=== PATIENT | male | born 1985 | race Caucasian/White ===

== ENCOUNTER 2018-08-15 11:46 | Emergency (ER) | payer OTHER ==
[2018-08-15] MEDS ORDERED: KETOROLAC TROMETHAMINE 30MG/ML ONE (11:52)
[2018-08-15 12:11] LABS: EOSINOPHILS % (AUTO) 1.7 % (0.0-8.0); HEMATOCRIT 44.8 % (42-54); LYMPHOCYTES % (AUTO) 32.9 % (21.0-51.0); MEAN CORPUSCULAR HGB CONC 34.1 g/dL (32.0-36.0); MEAN CORPUSCULAR VOLUME 96.8 fL (79-99); MONOCYTES % (AUTO) 6.6 % (3.0-13.0); NEUTROPHILS % (AUTO) 57.8 % (40.0-77.0); PLATELET COUNT (AUTO) 237 K/uL (130-400); RED BLOOD CELL COUNT(AUTO) 4.63 MIL/uL (4.50-6.20); RED CELL DISTRIBUTION WIDTH 13.6 % (11.0-15.5); WHITE BLOOD COUNT (AUTO) 7.2 K/uL (4.8-10.8)
[2018-08-15 12:15] LABS: APPEARANCE,URINE CLEAR (CLEAR); BILIRUBIN,URINE NEGATIVE (NEGATIVE); COLOR,URINE ORANGE (YELLOW); GLUCOSE, URINE (UA) 250 mg/dL (NEGATIVE); KETONES,URINE 15 mg/dL (NEGATIVE); LEUKOCYTE ESTERASE ,URINE SMALL (NEGATIVE); NITRATE,URINE POSITIVE (NEGATIVE); OCCULT BLOOD,URINE MODERATE (NEGATIVE); PH,URINE 6.5 (5.0-8.0); PROTEIN,URINE 100 mg/dL (NEGATIVE); UROBILINOGEN,URINE >=8.0 mg/dL (0.2-1.0)
[2018-08-15 12:19] LABS: CREATININE 1.2 mg/dL (0.5-1.5); POTASSIUM 3.7 mmol/L (3.5-5.1)
[2018-08-15 12:21] LABS: MUCUS,URINE Few LPF (None Seen); SQUAMOUS EPITHELIAL CELL,UR Rare /HPF (0-2)
[2018-08-15 12:23] LABS: BACTERIA,URINE Rare /HPF (None Seen)
[2018-08-15] MEDS ORDERED: MORPHINE SULFATE 2 MG/ML 1ML SYG ONE (12:43)
[2018-08-15] MEDS ORDERED: ONDANSETRON HCL 4 MG/2 ML VIAL ONE (12:43)
== END 2018-08-15 14:37 | disposition home or self-care (01) ==
LOC: EDBD 11:46 → EDH 11:46
DX: R30.0 Dysuria (principal); Z87.442 Personal history of urinary calculi
CPT/HCPCS: 36415; 74176; 80048; 81001; 85025; 96374; 96375; 99285; J1885; J2405

== ENCOUNTER 2020-09-07 22:39 | Emergency (ER) | payer OTHER ==
[~2020-09-07] VITALS: Ht 175.3 cm; Wt 98.0 kg
[2020-09-07 23:11] VITALS: BP 118/78
[2020-09-07] MEDS ORDERED: SODIUM CHLORIDE 0.9% 1000ML 1,000 ML IV ONE (23:34)
[2020-09-07 23:35] LABS: HEMATOCRIT 43.6 % (42-54); MEAN CORPUSCULAR HEMOGLOBIN 31.2 pg (27.0-33.0); MEAN CORPUSCULAR HGB CONC 33.9 g/dL (32.0-36.0); MEAN CORPUSCULAR VOLUME 91.8 fL (79-99); RED BLOOD CELL COUNT(AUTO) 4.75 MIL/uL (4.50-6.20); WHITE BLOOD COUNT (AUTO) 10.5 K/uL (4.8-10.8)
[2020-09-07] MEDS: SODIUM CHLORIDE 0.9% 1000ML 1,000 ML IV SCH (23:41)
[2020-09-07 23:45] LABS: APPEARANCE,URINE Cloudy (CLEAR); BILIRUBIN,URINE Moderate (NEGATIVE); GLUCOSE, URINE (UA) Negative (NEGATIVE); LEUKOCYTE ESTERASE ,URINE Moderate (NEGATIVE); NITRATE,URINE Positive (NEGATIVE); OCCULT BLOOD,URINE Moderate (NEGATIVE); PROTEIN,URINE POS 1+ mg/dL (NEGATIVE)
[2020-09-07 23:49] LABS: BILIRUBIN,TOTAL 0.9 mg/dL (0.2-1.0); CREATININE 1.3 mg/dL (0.5-1.5); POTASSIUM 3.6 mmol/L (3.5-5.1); TOTAL PROTEIN, SERUM 7.9 g/dL (6.0-8.3)
[2020-09-07 23:52] LABS: KETONES,URINE TRACE mg/dL (NEGATIVE)
[2020-09-07 23:53] LABS: COLOR,URINE ORANGE (YELLOW)
[2020-09-07 23:56] LABS: BACTERIA,URINE Few /HPF (None Seen)
[2020-09-08 00:50] VITALS: BP 125/66
[2020-09-08 01:54] VITALS: BP 119/71
[2020-09-08] MEDS ORDERED: KETOROLAC 30MG VIAL (30MG/ML) IV SCH (02:00)
[2020-09-08] MEDS ORDERED: ONDANSETRON HCL 4 MG/2 ML VIAL IVP SCH (02:00)
[2020-09-08 02:36] VITALS: BP 111/74
[2020-09-08] MEDS: SODIUM CHLORIDE 0.9% 1000ML 1,000 ML IV SCH (03:19)
[2020-09-08] MEDS ORDERED: CEFTRIAXONE SODIUM 1 GM IVP SCH (03:30)
[2020-09-08] MEDS ORDERED: CEPH500B PO (03:36)
[2020-09-08] MEDS ORDERED: METO-296 PO (03:36)
[2020-09-08] MEDS ORDERED: MELO7.5T12 PO (03:36)
[2020-09-08] MEDS ORDERED: DICY20TA2 PO (03:36)
[2020-09-08 04:21] VITALS: BP 115/72
== END 2020-09-08 04:30 | disposition home or self-care (01) ==
LOC: EDH 22:44
DX: N39.0 Urinary tract infection, site not specified (principal); E86.0 Dehydration; Z79.899 Other long term (current) drug therapy; Z79.1 Long term (current) use of non-steroidal anti-inflammatories (NSAID); Z87.442 Personal history of urinary calculi
CPT/HCPCS: 36415; 74176; 80053; 81001; 83690; 85027; 87088; 96374; 96375; 99285; J0696; J1885; J2405; J7030

== ENCOUNTER 2024-06-13 17:53 | Emergency (ER) | payer SELFPAY ==
[~2024-06-13] VITALS: Ht 175.3 cm; Wt 83.9 kg
[~2024-06-13 17:53] MED LIST: CEPH500B PO; DICY20TA2 PO; MELO7.5T12 PO; METO-296 PO
[2024-06-13 18:21] LABS: RAPID GROUP A STREP negative (NEGATIVE)
[2024-06-13 18:31] LABS: COVID19 (SARS ANTIGEN RAPID) PRESUMPTIVE NEGATIVE (NEGATIVE); INFLUENZA TYPE A Negative For Type A (NEGATIVE); INFLUENZA TYPE B Negative For Type B (NEGATIVE)
--- NOTE | 2024-06-13 18:47 | HMCIMG ---
PORTABLE CHEST RADIOGRAPH INDICATION: sob COMPARISON: None FINDINGS: Heart size is normal. The pulmonary vascularity and izabel appear normal. No abnormal pulmonary parenchymal opacity or consolidation identified. No significant pleural effusion noted. No pneumothorax detected. IMPRESSION: No radiographic evidence for any acute cardiopulmonary process.
[2024-06-13] MEDS ORDERED: BENZ-39 PO (18:51)
[2024-06-13] MEDS ORDERED: METH4TAB3 PO (18:51)
[2024-06-13] MEDS ORDERED: AMOX1TAB16 PO (18:51)
--- NOTE | 2024-06-13 18:52 | ERN ---
General Chief Complaint: Congestion Stated Complaint: SOB Time Seen by MD: 18:04 Time Seen by Midlevel: 18:04 Source: patient History of Present Illness Initial Comments Patient is a 38-year-old male with no significant past medical history presenting to the emergency department with cough, congestion, and shortness of breath that has been ongoing for the last three days. Today he reports a fever at home. Family is sick with similar symptoms at home. Allergies: Coded Allergies: No Known Allergies (Unverified Allergy, Unknown, 09/07/20) Home Meds Active Scripts Dicyclomine HCl (Bentyl) 20 Mg Tab, 20 MG PO Q6HPRN, #20 TAB 0 Refills Prov:UMAIR DUONG MD 09/08/20 Metoclopramide HCl (Reglan) 10 Mg Tablet, 10 MG PO TIDP, #20 TAB 0 Refills Prov:UMAIR DUONG MD 09/08/20 Meloxicam (Mobic) 7.5 Mg Tablet, 7.5 MG PO DAILYBKFST, #10 TAB 0 Refills Prov:UMAIR DUONG MD 09/08/20 Cephalexin Monohydrate (Keflex) 500 Mg Cap, 500 MG PO QID for 10 Days, #40 CAP 0 Refills Prov:UMAIR DUONG MD 09/08/20 Past Medical History Past Medical History: Kidney Stone Past Surgical History: None Social History Social History: Negative ROS Dictation CONSTITUTIONAL: Negative except for HPI HEAD/FACE: Negative except for HPI EENT: Negative except for HPI RESPIRATORY: Negative except for HPI GASTROINTESTINAL/ABDOMINAL: Negative except for HPI GENITOURINARY: Negative except for HPI MUSCULOSKELETAL: Negative except for HPI INTEGUMENTARY: Negative except for HPI NEUROLOGICAL/PSYCH: Negative except for HPI HEMATOLOGIC/LYMPHATIC: Negative except for HPI All Systems Negative, Except as noted above. 13 point review of systems assessed and all negative except for above. Physical Exam Physical Exam Dictation Vital Signs reviewed General Appearance: Alert, oriented x 3, no acute distress, well developed, nourished. Head and Face: non-traumatic. Eyes: PERRL, pink conjunctivas, eyelid no trauma, anterior chamber with arcus senilis. Ears: Pinnas intact and no signs of trauma or erythema ear canals clear and no discharge TM no erythema Nose: No discharge, no bleeding. Oropharynx: Mouth normal, tongue pink, pharynx clear,no erythema, tonsils no exudates, no abscesses noted, mucous membrane moist Neck: Supple, non-tender, no thyromegaly, no masses, no JVD, no bruits Breast:Deferred Chest:No tenderness, no crepitus, no paradoxical movement, no retractions Lungs:Clear, well-ventilated, symmetric, no rales, no wheezing, no rhonchi, no stridor, good breath sounds bilaterally Heart: Regular rate, regular rhythm, no murmur, no gallops Vascular: no peripheral edema, Abdomen: Soft, positive bowel sounds, nondistended, no guarding, nontender, no rebound, no masses no hepatomegaly, no splenomegaly, no Garza's sign, no hernias. Rectal: Deferred Genital: Deferred Neurological: Normal speech, motor function intact, sensory function intact Musculoskeletal: Neck nontender, full range of motion, back nontender, full range of motion, Extremities: nontender, full range of motion Skin: Color pink, dry, no turgor, no rash, no lacerations, no abrasions, no contusions. Lymphatic: Deferred Results Laboratory and Microbiology Lab and Micro Result Laboratory Tests Test 06/13/24 18:04 Influenza Type A Antigen Negative For Type A Influenza Type B Antigen Negative For Type B SARS-CoV-2 Antigen (Rapid) PRESUMPTIVE NEGATIVE Group A Streptococcus Rapid negative (NEGATIVE) Labs Reviewed?: Yes MDM MDM: Patient is a 38-year-old male with no significant past medical history presenting to the emergency department with cough, congestion, and shortness of breath that has been ongoing for the last three days. Today he reports a fever at home. Family is sick with similar symptoms at home. On arrival the patient is in no acute respiratory distress. O2 saturation is stable. Patient was febrile. Patient was given1 g of Tylenol. Respiratory swabs were obtained but are all negative. Chest x-ray shows what appears to be the start of an early pneumonia with a right pulmonary infiltrate. Radiologist read this as a normal x-ray but given clinical presentation and have high clinical suspicion for pneumonia. The patient was given breathing treatment, steroids, and Rocephin in the ER and will be discharged home with a prescription for amoxicillin. Differential diagnosis: Pneumonia, viral illness, acute bronchitis There are no social concerns with this patient. Prescription drug management Prescriptions will include: Augmentin, Medrol pack Medical management and examination interpretation discussions were had by me with other qualified healthcare professionals as indicated for the patient's care. ED Course Orders Procedure Category Date Status Time Covid19 (Sars Antigen LAB 06/13/24 Complete Rapid) 18:03 Influenza Type A & B, LAB 06/13/24 Complete Rapid 18:03 Rapid (Group A Strep) LAB 06/13/24 Complete 18:03 Acetaminophen 500mg PHA 06/13/24 Complete Tab (Tylenol 500mg T 18:30 Chest 1vw RAD 06/13/24 Taken 18:04 Dexamethasone 4mg/Ml PHA 06/13/24 Logged 1ml Vial (Dexametha 19:00 Ipratropium/Albuterol PHA 06/13/24 Logged Neb (Duoneb) 19:00 Ceftriaxone 1g Vial PHA 06/13/24 Logged (Rocephine 1g Inj) 19:00 Current Medications Medications (Trade) Dose Ordered Sig/Kathe Route PRN Reason Start Time Stop Time Status Last Admin Dose Admin Acetaminophen (TYLenol 500MG TAB) 1,000 mg ONCE ONCE PO 06/13/24 18:30 06/13/24 18:31 DC Albuterol (DUOneb) 1 UDVIAL ONCE ONCE IH 06/13/24 19:00 06/13/24 19:01 UNV Ceftriaxone Sodium (ROCEphine 1G INJ) 1 gm ONCE ONCE IM 06/13/24 19:00 06/13/24 19:01 UNV Dexamethasone Sodium Phosphate (dexaMETHasone 4MG/ML 1ML VIAL) 4 mg ONCE ONCE IM 06/13/24 19:00 06/13/24 19:01 UNV Vital Signs Date Time Temp Pulse Resp B/P (MAP) Pulse Ox O2 Delivery O2 Flow Rate FiO2 06/13/24 18:27 100.0 105 16 110/76 98 Room Air* 0 21 06/13/24 18:01 100.2 114 18 109/75 98 DX & DISP Disposition: Discharge Departure Impression: Primary Impression: Community acquired pneumonia Condition: Stable Scripts Benzonatate (Tessalon Perles) 100 Mg Cap 100 MG PO TID for cough, #30 CAP 0 Refills Prov: JOE RIVERA 06/13/24 Methylprednisolone (Medrol) 4 Mg Tab.ds.pk 1 TAB PO AD for 6 Days, #21 TAB 0 Refills 6 on day 1 then reduce by one tablet daily until gone Prov: OJE RIVERA 06/13/24 Amoxicillin/Potassium Clav (Amox Tr-K Clv 875-125 mg Tab) 875 Mg-125 Mg Tablet 1 EACH PO BID for 10 Days, #20 TAB 0 Refills Prov: JOE RIVERA 06/13/24 Referrals: SELF,REFERRAL (PCP) Time of Disposition: 18:48 I have reviewed the case, and I agree with, Diagnosis and Plan I performed the substantive portion of the visit. I have reviewed and personally made and approve the management plan that is documented in the note by myself or the PADMINI. I acknowledge for responsibility for the patient's management plan. JOE RIVERA Jun 13, 2024 18:52
--- NOTE | 2024-06-13 19:23 | NUR ---
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
[2024-06-13] MEDS: acetaMINOPHEN 500 MG TABLET PO ONE (19:24)
[2024-06-13] MEDS: dexaMETHasone SOD PHOSPHATE 4 MG/ML 1ML VIAL IM ONE (19:24)
[2024-06-13] MEDS: cefTRIAXone 1G VIAL IM ONE (19:24)
[2024-06-13 19:45] VITALS: TEMP 99.8
[2024-06-13] MEDS: IpraTROPium/alBUTERol SULFATE 3 ML SOLUTION IH ONE (19:59)
[2024-06-13 20:01] VITALS: BP 112/74; PULSE 102; PULSE 103; RESP 16; RESP 20; TEMP 99.8; O2SAT 98
== END 2024-06-13 20:14 | disposition home or self-care (01) ==
LOC: EDH 17:53
DX: J18.9 Pneumonia, unspecified organism (principal); Z20.822 Contact with and (suspected) exposure to COVID-19
CPT/HCPCS: 99284; 71045; 87426; 87880; 87804 ×2; 96372 ×2; 94640; J1100; J0696

== ENCOUNTER 2024-07-03 00:06 | Emergency (ER) | payer SELFPAY ==
[~2024-07-03] VITALS: Ht 175.3 cm; Wt 82.1 kg
[~2024-07-03 00:06] MED LIST changes: +AMOX1TAB16 PO; +BENZ-39 PO; +METH4TAB3 PO
[2024-07-03 00:41] LABS: RAPID GROUP A STREP negative (NEGATIVE)
[2024-07-03 00:51] LABS: INFLUENZA TYPE A Negative For Type A (NEGATIVE); INFLUENZA TYPE B Negative For Type B (NEGATIVE)
[2024-07-03 00:59] LABS: SARS-CoV-2, RNA, NAAT NEGATIVE SARS CoV-2 (NEGATIVE)
--- NOTE | 2024-07-03 02:00 | ERN ---
General Chief Complaint: Cough Stated Complaint: C/O COUGH,PHLEGM, UPPER BACK PAIN, CP WHEN COUGHIN Time Seen by MD: 00:11 Source: patient History of Present Illness Initial Comments pt is a 38-year-old gentleman coming in to be evaluated for cough. Per patient he has been having a cough for a couple of days he was seen at the ER couple of weeks ago was prescribed antibiotics states he has not follow up with the PCP. He also states that he finished antibiotics but it was still having discomfort. Allergies: Coded Allergies: No Known Allergies (Unverified Allergy, Unknown, 09/07/20) Home Meds Active Scripts Amoxicillin (Amoxicillin) 500 Mg Capsule, 1 CAP PO TID for 10 Days, #30 CAP 0 Refills Prov:HENRRY MOSQUERA MD 07/03/24 Doxycycline Hyclate (Doxycycline Hyclate) 100 Mg Capsule, 1 CAP PO BID for 10 Days, #20 CAP 0 Refills Prov:HENRRY MOSQUERA MD 07/03/24 Benzonatate (Tessalon Perles) 100 Mg Cap, 100 MG PO TID for cough, #30 CAP 0 Refills Prov:JOE RIVERA 06/13/24 Methylprednisolone (Medrol) 4 Mg Tab.ds.pk, 1 TAB PO AD for 6 Days, #21 TAB 0 Refills 6 on day 1 then reduce by one tablet daily until gone Prov:JOE RIVERA 06/13/24 Amoxicillin/Potassium Clav (Amox Tr-K Clv 875-125 mg Tab) 875 Mg-125 Mg Tablet, 1 EACH PO BID for 10 Days, #20 TAB 0 Refills Prov:JOE RIVERA 06/13/24 Dicyclomine HCl (Bentyl) 20 Mg Tab, 20 MG PO Q6HPRN, #20 TAB 0 Refills Prov:UMAIR DUONG MD 09/08/20 Metoclopramide HCl (Reglan) 10 Mg Tablet, 10 MG PO TIDP, #20 TAB 0 Refills Prov:UMAIR DUONG MD 09/08/20 Meloxicam (Mobic) 7.5 Mg Tablet, 7.5 MG PO DAILYBKFST, #10 TAB 0 Refills Prov:UMAIR DUONG MD 09/08/20 Cephalexin Monohydrate (Keflex) 500 Mg Cap, 500 MG PO QID for 10 Days, #40 CAP 0 Refills Prov:CASHUMAIR RAGSDALE MD 09/08/20 Past Medical History Past Medical History: Asthma Past Surgical History: None Social History Social History: Negative ROS Dictation CONSTITUTIONAL: No chills, no fever, no weakness, no diaphoresis, no malaise. HEAD/FACE: No signs of trauma. EENT: No eye pain, no blurred vision, no tearing, no double vision, no ear pain, no ear discharge, no nose pain, no nasal congestion, no throat pain, no throat swelling, no mouth pain. RESPIRATORY: cough, no orthopnea, no SOB, no stridor, no wheezing. CARDIOVASCULAR: No chest pain, no edema, no palpitations, no syncope. GASTROINTESTINAL/ABDOMINAL: No abdominal pain, no constipation, no diarrhea, no nausea, no vomiting. GENITOURINARY: No abnormal discharge, no dysuria, no frequent urination, no hematuria. No complaints of pain in the genitals. MUSCULOSKELETAL: No back pain, no gout, no joint pain, no joint swelling, no muscle pain, no muscle stiffness, no neck pain. INTEGUMENTARY: No change in color, no change in hair/nails, no dryness, no lesion, no lumps, no rash. NEUROLOGICAL/PSYCH: No anxiety, not depressed, no emotional problem, no headache, no numbness, no pre-existing deficit, no history of seizures, no tremors, no weakness. HEMATOLOGIC/LYMPHATIC: Not anemic, no history of blood clots, no apparent bleeding, no bruising, glands not swollen. All Systems Negative, Except as Noted. Physical Exam Physical Exam Dictation VITAL SIGNS: Reviewed. GENERAL APPEARANCE: Alert, oriented x3, no acute distress, obese. HEAD AND FACE: Non-traumatic. EYES: PERRL, pink conjunctivas, eyelid no trauma, anterior chamber clear. EARS: Pinnas intact and no signs of trauma or erythema. Ear canals clear and no discharge. TMs no erythema. NOSE: No discharge, no bleeding. OROPHARYNX: Mouth normal, teeth no caries, tongue pink. Pharynx clear, no erythema. Tonsils no exudates, no abscesses noted. Mucous membrane moist. NECK: Supple, non-tender, no thyromegaly, no masses, no JVD, no bruits. BREAST: Deferred. CHEST: No tenderness, no crepitus, no paradoxical movement, no retractions. LUNGS: Clear, well-ventilated, symmetric, no rales, no wheezing, no rhonchi, no stridor, good breath sounds bilaterally. HEART: Regular rate, regular rhythm, no murmur, no gallops. VASCULAR: No peripheral edema. ABDOMEN: Soft, positive bowel sounds, nondistended, no guarding, nontender, no rebound, no masses no hepatomegaly, no splenomegaly, no Garza's sign, no hernias. RECTAL: Deferred. GENITAL: Deferred. NEUROLOGICAL: Normal speech, gross motor function intact, gross sensory function intact. MUSCULOSKELETAL: Neck nontender, full range of motion, back nontender, full range of motion. EXTREMITIES: Nontender, full range of motion. SKIN: Color pink, dry, no turgor, no rash, no lacerations, no abrasions, no contusions. LYMPHATICS: Deferred. Results Laboratory and Microbiology Lab and Micro Result Laboratory Tests Test 07/03/24 00:19 07/03/24 02:13 Influenza Type A Antigen Negative For Type A Influenza Type B Antigen Negative For Type B SARS-CoV-2, RNA, NAAT NEGATIVE SARS CoV-2 Group A Streptococcus Rapid negative (NEGATIVE) White Blood Count 13.8 K/uL (4.8-10.8) H Red Blood Count 3.98 MIL/uL (4.50-6.20) L Hemoglobin 12.7 g/dL (14.0-18.0) L Hematocrit 36.7 % (42-54) L Mean Corpuscular Volume 92.2 fL (79-99) Mean Corpuscular Hemoglobin 31.9 pg (27.0-33.0) Mean Corpuscular Hemoglobin Concent 34.6 g/dL (32.0-36.0) Red Cell Distribution Width 13.8 % (11.0-15.5) Platelet Count 330 K/uL (130-400) Mean Platelet Volume 9.8 fL (7.5-10.5) Immature Granulocyte % (Auto) 0.4 % (0-1) Neutrophils (%) (Auto) 67.2 % (40.0-77.0) Lymphocytes (%) (Auto) 23.6 % (21.0-51.0) Monocytes (%) (Auto) 7.2 % (3.0-13.0) Eosinophils (%) (Auto) 1.2 % (0.0-8.0) Basophils (%) (Auto) 0.4 % (0.0-5.0) Neutrophils # (Auto) 9.3 K/uL (1.8-7.7) H Lymphocytes # (Auto) 3.3 K/uL (1.0-4.8) Monocytes # (Auto) 1.0 K/uL (0.1-1.0) Eosinophils # (Auto) 0.16 K/uL (0.00-0.70) Basophils # (Auto) 0.06 K/uL (0.00-0.20) Absolute Immature Granulocyte (auto 0.06 K/uL (0-1) Nucleated Red Blood Cells 0.0 % (0.0-0.19) Sodium Level 141 mmol/L (136-145) Potassium Level 3.4 mmol/L (3.5-5.1) L Chloride Level 104 mmol/L (101-111) Carbon Dioxide Level 30 mmol/L (21-32) Blood Urea Nitrogen 14 mg/dL (7-18) Creatinine 1.0 mg/dL (0.5-1.3) Glomerular Filtration Rate Calc 98 mL/min (>90) Random Glucose 97 mg/dL (70-105) Total Calcium 9.2 mg/dL (8.5-10.1) Troponin I High Sensitivity 7 ng/L (4-75) Labs Reviewed?: Yes EKG/XRAY/US/CT/MRI EKG Comment 07/03/2024 time 2:12 a.m. Ventricular rate [address] wave elevation or depression X-RAY Comment Chest x-ray-right peribronchial congestion MDM MDM: Differential diagnosis: URI, pneumonia, Patient is a 38-year-old male coming in to be evaluated for cough and congestion. Per patient the symptoms has been ongoing for two weeks. He was prescribed antibiotics couple of weeks ago. During this visit white blood cell count mildly elevated based on the curb 65 patient will be discharged in stable condition with a diagnosis of URI. ED Course Orders Procedure Category Date Status Time Chest 1vw RAD 07/03/24 Taken 00:22 Covid Rna Naat LAB 07/03/24 Complete 00:22 Influenza Type A & B, LAB 07/03/24 Complete Rapid 00:22 Rapid (Group A Strep) LAB 07/03/24 Complete 00:22 Cbc With Differential LAB 07/03/24 Complete 02:00 Basic Metabolic Panel LAB 07/03/24 Complete 02:00 12 Lead Ekg Tracing- EKG 07/03/24 Logged Technical 02:00 Troponin I High LAB 07/03/24 Complete Sensitivity 02:00 Ipratropium/Albuterol PHA 07/03/24 Complete Neb (Duoneb) 02:00 Methylprednisolone PHA 07/03/24 Complete Succ 125mg (Solu-Medr 02:00 Ceftriaxone 1g Vial PHA 07/03/24 Complete (Rocephine 1g Inj) 03:00 Current Medications Medications (Trade) Dose Ordered Sig/Kathe Route PRN Reason Start Time Stop Time Status Last Admin Dose Admin Albuterol (DUOneb) 1 udvial ONCE ONCE IH 07/03/24 02:00 07/03/24 02:03 DC 07/03/24 02:22 Ceftriaxone Sodium (ROCEphine 1G INJ) 1 gm ONCE ONCE IVPB 07/03/24 03:00 07/03/24 03:01 DC Methylprednisolone Sodium Succinate (Solu-medROL 125MG) 125 mg ONCE ONCE IVP 07/03/24 02:00 07/03/24 02:03 DC 07/03/24 02:15 Vital Signs Date Time Temp Pulse Resp B/P (MAP) Pulse Ox O2 Delivery O2 Flow Rate FiO2 07/03/24 02:22 106 18 07/03/24 00:27 97.9 106 20 128/71 95 Room Air* 0 21 07/03/24 00:09 97.5 115 24 140/85 95 Room Air DX & DISP Disposition: Discharge Departure Impression: Primary Impression: URI (upper respiratory infection) Condition: Stable Scripts Amoxicillin (Amoxicillin) 500 Mg Capsule 1 CAP PO TID for 10 Days, #30 CAP 0 Refills Prov: HENRRY MOSQUERA MD 07/03/24 Doxycycline Hyclate (Doxycycline Hyclate) 100 Mg Capsule 1 CAP PO BID for 10 Days, #20 CAP 0 Refills Prov: HENRRY MOSQUERA MD 07/03/24 Additional Instructions: FOLLOW-UP WITH PRIMARY CARE PROVIDER IN 1 TO 2 DAYS. TAKE MEDICATIONS DIRECTED HERE IN THE EMERGENCY ROOM. OKAY TO CONTINUE HOME MEDICATIONS UNLESS OTHERWISE DISCUSSED DURING YOUR VISIT IN THE EMERGENCY ROOM TODAY. RETURN TO YOUR NEAREST EMERGENCY ROOM IF SYMPTOMS WORSEN OR IF THERE IS NO IMPROVEMENT. CALL 911 IF YOU NEED IMMEDIATE ASSISTANCE. TAKE TYLENOL MXYN-DAO-CATYLIT NEEDED AND IF NO CONTRAINDICATIONS ARE PRESENT. INCREASE ORAL HYDRATION. A W OUND CULTURE OR URINE CULTURE WAS ORDERED HERE IN THE EMERGENCY ROOM DEPARTMENT PLEASE FOLLOW-UP WITH PRIMARY CARE PROVIDER AND ADVISE THEM TO GET REPEAT PORTS FROM OUR FACILITY. IF YOU HAD ANY NILA WRAP/SPLINTS THAT WERE APPLIED HERE, PLEASE DO NOT REMOVE THEM UNTIL YOU SEE YOUR PRIMARY CARE OR SPECIALTY. Referrals: Referrals: SELF,REFERRAL (PCP) JOE FITZPATRICK MD Time of Disposition: 03:08 HENRRY MOSQUERA MD Jul 03, 2024 02:00
[2024-07-03] MEDS: Solu-medROL 125MG VIAL IVP ONE (02:15)
[2024-07-03 02:20] LABS: BASOPHILS # (AUTO) 0.06 K/uL (0.00-0.20); BASOPHILS % (AUTO) 0.4 % (0.0-5.0); EOSINOPHILS # (AUTO) 0.16 K/uL (0.00-0.70); EOSINOPHILS % (AUTO) 1.2 % (0.0-8.0); HEMATOCRIT 36.7 % (42-54); IMMATURE GRANULOCYTE ABSOLUTE 0.06 K/uL (0-1); LYMPHOCYTES # (AUTO) 3.3 K/uL (1.0-4.8); LYMPHOCYTES % (AUTO) 23.6 % (21.0-51.0); MEAN CORPUSCULAR HEMOGLOBIN 31.9 pg (27.0-33.0); MEAN CORPUSCULAR HGB CONC 34.6 g/dL (32.0-36.0); MEAN CORPUSCULAR VOLUME 92.2 fL (79-99); MONOCYTES % (AUTO) 7.2 % (3.0-13.0); NEUTROPHILS # (AUTO) 9.3 K/uL (1.8-7.7); NEUTROPHILS % (AUTO) 67.2 % (40.0-77.0); PLATELET COUNT (AUTO) 330 K/uL (130-400); RED BLOOD CELL COUNT(AUTO) 3.98 MIL/uL (4.50-6.20); RED CELL DISTRIBUTION WIDTH 13.8 % (11.0-15.5); WHITE BLOOD COUNT (AUTO) 13.8 K/uL (4.8-10.8)
[2024-07-03 02:22] VITALS: PULSE 106; RESP 18
[2024-07-03] MEDS: IpraTROPium/alBUTERol SULFATE 3 ML SOLUTION IH ONE (02:22)
[2024-07-03 02:56] LABS: POTASSIUM 3.4 mmol/L (3.5-5.1)
[2024-07-03] MEDS ORDERED: DOXY100C5 PO (03:10)
[2024-07-03] MEDS ORDERED: AMOX500C2 PO (03:10)
[2024-07-03] MEDS: cefTRIAXone 1G VIAL IVPB ONE (03:16)
[2024-07-03 03:20] VITALS: BP 131/82; PULSE 94; RESP 20; TEMP 98.3; O2SAT 95
--- NOTE | 2024-07-03 08:21 | EKG ---
[facility] Test Date: 2024-07-03 Test Time: 02:12:29 Pat Name: DIANA SMITH Department: ED Room: Gender: Male Hands Parter: [id number] : 1985 Requested By: HENRRY MOSQUERA Order Number: [id number] Reading MD: Measurements Intervals [place] Rate: 95 P: 48 NH: 184 QRS: -10 QRSD: 83 T: 15 QT: 336 QTc: 423 Interpretive Statements Sinus rhythm Inferior infarct, old No previous ECG available for comparison Please click the below link to view image of tracing.
--- NOTE | 2024-07-03 09:13 | HMCIMG ---
CHEST 1VW HISTORY: Cough COMPARISON: 06/13/2024 FINDINGS: A frontal projection of the chest was obtained. Mild bilateral pulmonary infiltrates are seen may be related to mild pulmonary vascular congestion with possible superimposed pneumonitis. The heart is enlarged. Degenerative changes are seen. No evidence of aortic calcification is seen. IMPRESSION: 1. Mild bilateral pulmonary infiltrates are seen may be related to mild pulmonary vascular congestion with possible superimposed pneumonitis.
== END 2024-07-03 03:23 | disposition home or self-care (01) ==
LOC: EDH 00:06
DX: J06.9 Acute upper respiratory infection, unspecified (principal); J45.909 Unspecified asthma, uncomplicated; Z20.822 Contact with and (suspected) exposure to COVID-19; Z79.899 Other long term (current) drug therapy
CPT/HCPCS: 99285; 96374; 71045; 87635; 96375; 84484; 80048; 85025; 87880; 87804 ×2; 36415; 93005; 94640; J2919; J0696